=== PATIENT | female | born 1965 | race African-American/Black ===

== ENCOUNTER 2018-09-15 22:06 | Emergency (ER) | payer MEDICAID ==
[~2018-09-15] VITALS: Ht 162.6 cm; Wt 63.5 kg
[~2018-09-15 22:06] MED LIST: ALBUTEROL SULF8.5 GM INH; AZITHROMYCIN250 MG ORAL
[2018-09-15] MEDS ORDERED: NKM (22:25)
[2018-09-15 22:43] VITALS: BP 155/92
--- NOTE | 2018-09-15 22:43 | NUR ---
ER Nurse Note: Pt came from home c/o several complaints. Pt stated she has wheezes but no difficulty breathing. Pt is not compliant with meds. Pt stated she is wants a general check up by doctor due to her lifestyle choices. Pt denies pain; a&ox4, VSS, no signs of distress. Will continue to montior.
[2018-09-15] MEDS ORDERED: Albuterol ud Inhalation HHN ONE (22:45)
[2018-09-15] MEDS ORDERED: PREDNISONE20 MG ORAL (23:17)
[2018-09-15] MEDS ORDERED: ALBUTEROL SULF8.5 GM INH (23:17)
[2018-09-15] MEDS ORDERED: ZITHROMAX250 MG ORAL (23:17)
--- NOTE | 2018-09-15 23:18 | Emergency Room Report ---
History of Present Illness General Chief Complaint: General Complaint Source: Patient Present Illness HPI Is a 52-year-old female with no significant past medical history. She presents with chief complaint of shortness of breath. This has been ongoing for a month. She said he get worse after she started using cocaine and alcohol again. No nausea no vomiting. She has wheezing. No history of asthma. Coughing is productive of phlegm. No fever or chills. She also has other complaints of possible infection in her feet. Also with cramping and shortness of breath. Also muscle pain. Allergies: Coded Allergies: No Known Allergies (Unverified , 03/16/13) Patient History Past Medical History: see triage record, old chart reviewed Past Surgical History: none Pertinent Family History: none Social History: Reports: smoking, alcohol use, drug use Now: No Immunizations: other Reviewed Nursing Documentation: PMH: Agreed; PSxH: Agreed Nursing Documentation-PMH Past Medical History: No Stated History Review of Systems Eye: Denies: eye pain, blurred vision ENT: Denies: ear pain, nose congestion, throat swelling Respiratory: Reports: cough, shortness of breath, wheezing Cardiovascular: Denies: chest pain, palpitations Gastrointestinal: Denies: abdominal pain, diarrhea, nausea, vomiting Musculoskeletal: Denies: back pain, joint pain Skin: Denies: rash Neurological: Denies: headache, numbness Endocrine: Denies: increased thirst, increased urine Hematologic/Lymphatic: Denies: easy bruising All Other Systems: negative except mentioned in HPI Physical Exam Vital Signs Date Time Temp Pulse Resp B/P (MAP) Pulse Ox O2 Delivery O2 Flow Rate FiO2 09/15/18 22:22 98.4 88 14 95 Room Air 09/15/18 22:43 155/92 vitals with high blood pressure Sp02 EP Interpretation: reviewed, normal General Appearance: well appearing, no apparent distress, alert Head: normocephalic, atraumatic Eyes: bilateral eye PERRL, bilateral eye EOMI ENT: hearing grossly normal, normal pharynx Neck: full range of motion, supple, no meningismus Respiratory: chest non-tender, wheezing Cardiovascular #1: regular rate, rhythm, no murmur Gastrointestinal: normal bowel sounds, non tender, no mass, no organomegaly, no bruit, non-distended Musculoskeletal: back normal, gait/station normal, normal range of motion, other - Toes with onychomycosis Psychiatric: mood/affect normal Skin: warm/dry Medical Decision Making Diagnostic Impression: Primary Impression: Atypical pneumonia Additional Impressions: Cocaine abuse Onychomycosis ER Course She presents with coughing and wheezing. Better after breathing treatment. She probably has underlying COPD/asthma. Because of her going over a month, we' ll put her on antibiotics to cover for atypical pneumonia. No evidence of sepsis, ACS, PE, dissection to name a few. I advice patient to go to rehabilitation but she said she doesn't need to. No criteria for 5150. Last Vital Signs Date Time Temp Pulse Resp B/P (MAP) Pulse Ox O2 Delivery O2 Flow Rate FiO2 09/15/18 22:43 98.4 76 14 155/92 95 Room Air Status: improved Disposition: HOME, SELF-CARE Condition: Stable Scripts Azithromycin* (ZITHROMAX*) 250 Mg Tablet 250 MG ORAL DAILY, #6 TAB 0 Refills Take two tables once daily for 1 day, then one tablet once daily for 4 days. Prov: Will Hanna MD 09/15/18 Prednisone* (PREDNISONE*) 20 Mg Tablet 40 MG ORAL DAILY, #8 TAB Prov: Will Hanna MD 09/15/18 Albuterol Sulfate* (ALBUTEROL SULFATE MDI*) 8.5 Gm Hfa.aer.ad 2 PUFF INH Q4H PRN for cough/wheezing, #1 EA 0 Refills Prov: Will Hanna MD 09/15/18 Additional Instructions: Stop using drugs. Follow-up in rehabilitation within 7 days. Follow-up with your doctor in 7 days. Return if worse. Will Hanna MD September 15, 2018 23:18
[2018-09-15 23:25] VITALS: BP 155/92
--- NOTE | 2018-09-15 23:25 | NUR ---
ER Nurse Note: All orders completed per ERMD orders. Pt seen, treated, medically cleared for discharge by ERMD. Discharge instructions given with repeat verbazliaion by pt. Instructed pt to follow up with primary care provider within one week. Pt a&ox4, VSS, no signs of distress. ID band removed. Pt left with all belongings with steady gait via own transportation with family member.
== END 2018-09-15 23:25 | disposition home or self-care (01) ==
LOC: EMR 22:50
DX: J18.9 Pneumonia, unspecified organism (principal); F14.10 Cocaine abuse, uncomplicated; B35.1 Tinea unguium; F17.200 Nicotine dependence, unspecified, uncomplicated
CPT/HCPCS: 94640; 99284; J7512